=== PATIENT | female | born 1960 | race Caucasian/White ===

== ENCOUNTER 2016-12-28 19:38 | Emergency (ER) | payer OTHER ==
[~2016-12-28] VITALS: Ht 154.9 cm; Wt 59.0 kg
[~2016-12-28 19:38] MED LIST: INSU100V SC; INSU100V8 SQ
[2016-12-28] MEDS ORDERED: FLUO10CA7 PO (20:14)
[2016-12-28] MEDS ORDERED: GABA-827 PO (20:15)
[2016-12-28] MEDS ORDERED: LOSA25TA5 PO (20:15)
[2016-12-28] MEDS ORDERED: SODIUM CHLORIDE 0.9% 1,000ML IVBOLUS ONE (20:30)
[2016-12-28] MEDS ORDERED: ONDANSETRON 2MG/ML, 2ML IVPush ONE (20:30)
[2016-12-28] MEDS ORDERED: KETOROLAC 30 MG/1 ML IVPush ONE (20:30)
[2016-12-28] MEDS ORDERED: KETOROLAC 30 MG/1 ML ONE (20:44)
[2016-12-28] MEDS ORDERED: ONDANSETRON 2MG/ML, 2ML ONE (20:44)
[2016-12-28 20:52] LABS: HEMATOCRIT 38.4 % (34.6-47.8); HEMOGLOBIN 12.7 g/dL (11.7-16.4); WHITE BLOOD COUNT 6.4 x10^3/uL (3.4-10)
[2016-12-28 21:05] LABS: ASPARTATE AMINO TRANSFERASE 33 U/L (15-37); BLOOD UREA NITROGEN 13 mg/dL (7-18)
[2016-12-28 21:14] LABS: IS PT STATUS REG ER OR PRE ER? YES
[2016-12-28] MEDS ORDERED: DEXTROSE 50%, 50ML SYRINGE IVPush ONE (21:30)
[2016-12-28] MEDS ORDERED: DEXTROSE 50%, 50ML SYRINGE ONE (21:32)
[2016-12-28] MEDS ORDERED: MAALOX/HYOSCYAMINE/LIDOCAINE 45 ML BTL ONE (21:49)
[2016-12-28] MEDS ORDERED: MAALOX/HYOSCYAMINE/LIDOCAINE 45 ML BTL PO ONE (22:00)
[2016-12-28 22:32] VITALS: BP 152/68
== END 2016-12-28 22:46 | disposition home or self-care (01) ==
LOC: ED 21:00
DX: R10.11 Right upper quadrant pain (principal); R10.13 Epigastric pain; E11.9 Type 2 diabetes mellitus without complications; F10.20 Alcohol dependence, uncomplicated; Z87.891 Personal history of nicotine dependence
CPT/HCPCS: 36415; 80053; 81001; 82962; 83690; 84484; 85025; 87086; 93005; 96361; 96374; 96375; 99285; J1885; J2405; J7030

== ENCOUNTER → 2017-05-01 | Outpatient (CLI) | payer OTHER ==
[~2017-05-01] MED LIST changes: +FLUO10CA7 PO; +GABA-827 PO; +LOSA25TA5 PO; +MULT-717 PO
[2017-05-01 15:19] LABS: BASOPHILS # (AUTO) 0.04 x10^3/uL (0-0.1); BASOPHILS % (AUTO) 1 % (0-1); EOSINOPHILS # (AUTO) 0.06 x10^3/uL (0-0.4); EOSINOPHILS % (AUTO) 1 % (1-7); LYMPHOCYTES # (AUTO) 1.15 x10^3/uL (1-3.4); LYMPHOCYTES % (AUTO) 20 % (22-44); MD NO; MEAN CORPUSCULAR HGB CONC 34.1 g/dL (32.4-35.8); MEAN CORPUSCULAR VOLUME 102.7 fL (80-100); MEAN PLATELET VOLUME 7.4 fL (7.4-10.4); MONOCYTES # (AUTO) 0.42 x10^3/uL (0.2-0.8); MONOCYTES % (AUTO) 7 % (2-9); NEUTROPHILS # (AUTO) 4.11 x10^3/uL (1.8-6.8); NEUTROPHILS % (AUTO) 71 % (42-75); PLATELET COUNT 345 x10^3/uL (130-400); RED BLOOD COUNT 3.67 x10^6/uL (3.82-5.3); RED CELL DISTRIBUTION WIDTH 14.4 % (9.6-15.2)
[2017-05-01 15:26] LABS: ALANINE AMINOTRANSFERASE 27 U/L (12-78); ALBUMIN 4.1 g/dL (3.4-5.0); ANION GAP 8 mmol/L (5-15); CALCIUM 9.2 mg/dL (8.5-10.1); CHLORIDE 98 mmol/L (98-107); CREATININE 1.19 mg/dL (0.55-1.02)
[2017-05-01 15:28] LABS: ALKALINE PHOSPHATASE 90 U/L (45-117); BILIRUBIN,TOTAL 1.4 mg/dL (0.2-1.0); TOTAL PROTEIN 7.6 g/dL (6.4-8.2)
[2017-05-01 15:38] LABS: INTERNATIONAL NORMALIZED RATIO 1.03 (0.93-1.1); PROTHROMBIN TIME 10.6 Seconds (9.6-11.5)
[2017-05-01 16:02] LABS: HEMOGLOBIN A1C 6.6 % (4.2-6.3)
== END ==
LOC: STAR 14:10
PROVIDERS: ATTEND Orthopaedic Surgery
DX: Z47.1 Aftercare following joint replacement surgery (principal); Z96.651 Presence of right artificial knee joint; E11.9 Type 2 diabetes mellitus without complications; Z79.899 Other long term (current) drug therapy
CPT/HCPCS: 36415; 80053; 83036; 85025; 85610; 85730; 87081; 87806; 93005; G0475

== ENCOUNTER 2017-09-14 17:40 | Emergency (ER) | payer OTHER ==
[~2017-09-14] VITALS: Ht 154.9 cm; Wt 53.0 kg
[~2017-09-14 17:40] MED LIST changes: +ASPI-621 PO; +CELE200C PO; +DIAZ5TAB PO; +DOCU-131 PO; +ONDA4TAB10 PO; +OXYC5CAP2 PO; +TRAM50TA2 PO
[2017-09-14] MEDS ORDERED: SODIUM CHLORIDE 0.9% 1,000 ML IV ONE (18:01)
[2017-09-14] MEDS ORDERED: HYDROmorphone 2 MG/ML, 1ML ONE (18:17)
[2017-09-14] MEDS ORDERED: ONDANSETRON ODT 4 MG ONE (18:18)
[2017-09-14] MEDS ORDERED: HYDROmorphone 1 MG/ML, 1ML IVPush PRN (18:30)
[2017-09-14] MEDS ORDERED: SODIUM CHLORIDE 0.9% 1,000ML IVBOLUS ONE (18:30)
[2017-09-14] MEDS ORDERED: SODIUM CHLORIDE FLUSH 10ML SYR IVF ONE (18:30)
[2017-09-14] MEDS ORDERED: ONDANSETRON ODT 4 MG PO ONE (18:30)
[2017-09-14 18:47] LABS: BASOPHILS # (AUTO) 0.09 x10^3/uL (0-0.1); BASOPHILS % (AUTO) 1 % (0-1); EOSINOPHILS # (AUTO) 0.04 x10^3/uL (0-0.4); EOSINOPHILS % (AUTO) 1 % (1-7); LYMPHOCYTES # (AUTO) 1.55 x10^3/uL (1-3.4); LYMPHOCYTES % (AUTO) 23 % (22-44); MD NO; MEAN CORPUSCULAR HGB CONC 34.2 g/dL (32.4-35.8); MEAN CORPUSCULAR VOLUME 96.3 fL (80-100); MEAN PLATELET VOLUME 7.5 fL (7.4-10.4); MONOCYTES # (AUTO) 0.26 x10^3/uL (0.2-0.8); MONOCYTES % (AUTO) 4 % (2-9); NEUTROPHILS # (AUTO) 4.73 x10^3/uL (1.8-6.8); NEUTROPHILS % (AUTO) 71 % (42-75); PLATELET COUNT 437 x10^3/uL (130-400); RED BLOOD COUNT 4.04 x10^6/uL (3.82-5.3); RED CELL DISTRIBUTION WIDTH 14.1 % (9.6-15.2)
[2017-09-14 18:51] LABS: PROTHROMBIN TIME 10.4 Seconds (9.6-11.5)
[2017-09-14 18:55] LABS: ALANINE AMINOTRANSFERASE 35 U/L (12-78); ALBUMIN 3.7 g/dL (3.4-5.0); ANION GAP 18 mmol/L (5-15); CALCIUM 8.6 mg/dL (8.5-10.1); CHLORIDE 99 mmol/L (98-107); CREATININE 1.01 mg/dL (0.55-1.02)
[2017-09-14 19:04] LABS: ALKALINE PHOSPHATASE 114 U/L (45-117); BILIRUBIN,TOTAL 1.4 mg/dL (0.2-1.0); TOTAL PROTEIN 7.1 g/dL (6.4-8.2)
[2017-09-14] MEDS ORDERED: ONDANSETRON 2MG/ML, 2ML ONE (19:17)
[2017-09-14] MEDS ORDERED: ONDANSETRON 2MG/ML, 2ML IVPush ONE (19:30)
[2017-09-14 19:33] LABS: CULTURE INDICATED? YES; MICROSCOPIC INDICATED
[2017-09-14] MEDS ORDERED: OMNIPAQUE 350 MG/ML, 100ML BOTTLE ONE (22:14)
[2017-09-14] MEDS ORDERED: PROMETHAZINE 25 MG/ML, 1ML ONE (22:27)
[2017-09-14] MEDS ORDERED: PROMETHAZINE 25 MG/ML, 1ML IM ONE (22:30)
[2017-09-14 22:32] VITALS: BP 115/54
== END 2017-09-14 22:43 | disposition home or self-care (01) ==
LOC: ED 20:04
DX: K29.20 Alcoholic gastritis without bleeding (principal); F10.10 Alcohol abuse, uncomplicated; N30.00 Acute cystitis without hematuria; Z90.49 Acquired absence of other specified parts of digestive tract
CPT/HCPCS: 36415; 71275; 74177; 80053; 80307; 81001; 83690; 85025; 85610; 85730; 87086; 93005; 96361; 96372; 96374; 96375; 99285; J1170; J2405; J2550; J7030; Q0162; Q9967

== ENCOUNTER 2017-12-08 22:42 | Emergency (ER) | payer OTHER ==
[~2017-12-08] VITALS: Ht 154.9 cm; Wt 60.5 kg
[~2017-12-08 22:42] MED LIST changes: -LOSA25TA5 PO; +LOSA25TA6 PO
[2017-12-08] MEDS ORDERED: DEXTROSE 50%, 50ML SYRINGE ONE (22:46)
[2017-12-08] MEDS ORDERED: SODIUM CHLORIDE 0.9% 1,000ML IVBOLUS ONE (23:30)
[2017-12-08] MEDS ORDERED: SODIUM CHLORIDE FLUSH 10ML SYR IVF ONE (23:30)
[2017-12-08] MEDS ORDERED: LORazepam 2 MG/ML, 1ML IVPush ONE (23:30)
[2017-12-08 23:33] LABS: BASOPHILS # (AUTO) 0.03 x10^3/uL (0-0.1); BASOPHILS % (AUTO) 0 % (0-1); EOSINOPHILS % (AUTO) 3 % (1-7); LYMPHOCYTES # (AUTO) 2.31 x10^3/uL (1-3.4); LYMPHOCYTES % (AUTO) 25 % (22-44); MD NO; MEAN CORPUSCULAR HEMOGLOBIN 33.3 pg (27.0-34.8); MEAN CORPUSCULAR HGB CONC 34.6 g/dL (32.4-35.8); MEAN CORPUSCULAR VOLUME 96.4 fL (80-100); MEAN PLATELET VOLUME 7.9 fL (7.4-10.4); MONOCYTES # (AUTO) 0.68 x10^3/uL (0.2-0.8); MONOCYTES % (AUTO) 7 % (2-9); NEUTROPHILS % (AUTO) 65 % (42-75); PLATELET COUNT 390 x10^3/uL (130-400); RED BLOOD COUNT 4.29 x10^6/uL (3.82-5.3); RED CELL DISTRIBUTION WIDTH 13.1 % (9.6-15.2)
[2017-12-08 23:41] LABS: ALBUMIN 4.5 g/dL (3.4-5.0); ANION GAP 12 mmol/L (5-15); CALCIUM 9.8 mg/dL (8.5-10.1); CHLORIDE 101 mmol/L (98-107); CREATININE 1.09 mg/dL (0.55-1.02)
[2017-12-09 00:19] VITALS: BP 128/61
[2017-12-09 00:24] LABS: MICROSCOPIC NOT IND
[2017-12-09 00:27] LABS: CULTURE INDICATED? NO
== END 2017-12-09 01:30 | disposition home or self-care (01) ==
LOC: ED 12-09 00:22
DX: E10.641 Type 1 diabetes mellitus with hypoglycemia with coma (principal); R41.82 Altered mental status, unspecified
CPT/HCPCS: 36415; 80048; 81003; 82040; 82962; 85025; 96360; 99291; J7030

== ENCOUNTER 2018-08-08 20:23 | Emergency (ER) | payer OTHER ==
[~2018-08-08] VITALS: Ht 162.6 cm; Wt 65.0 kg
[~2018-08-08 20:23] MED LIST changes: -ASPI-621 PO; +ASPI81TA45 PO; +FLUO20CA8 PO; +INSU300I SQ; +LOSA25TA25 PO; -LOSA25TA6 PO
--- NOTE | 2018-08-08 20:34 | NUR ---
Bib [facility] c/o "acting weird" per . 26 fsbg observed and given 250 ml d10. 2nd fsbg of 288 from [facility]. 123 fsbg in ed. Pt slurring words in ed, but admits to drinking today. Neuro otherwise intact. Given juice to drink. A+ox4. Unsure of how much insulin she took today. All monitoring applied. Vss. Call light within reach.
--- NOTE | 2018-08-08 20:48 | NUR ---
Given sandwich and chips per md order.
--- NOTE | 2018-08-08 21:21 | NUR ---
Pt appearing more alert and slurring has mostly resolved. Vss. Nadn. Ate half of sandwich and chips. Fsbg of 165 observed.
--- NOTE | 2018-08-08 22:24 | NUR ---
No immediate needs from pt. Multiple stably increasing fsbg documented. aware.
[2018-08-08 22:25] VITALS: BP 133/88
== END 2018-08-08 23:24 | disposition home or self-care (01) ==
LOC: ED 21:01
DX: E10.641 Type 1 diabetes mellitus with hypoglycemia with coma (principal); Z79.4 Long term (current) use of insulin; Z87.891 Personal history of nicotine dependence
CPT/HCPCS: 82962; 93005; 99283

== ENCOUNTER 2019-04-27 18:07 | Emergency (ER) | payer MEDICAID ==
[~2019-04-27] VITALS: Ht 154.9 cm; Wt 60.0 kg
[~2019-04-27 18:07] MED LIST changes: +FLUO10CA14 PO; -FLUO10CA7 PO; +FLUO20CA23 PO; -FLUO20CA8 PO
[2019-04-27 18:46] LABS: BASOPHILS # (AUTO) 0.03 x10^3/uL (0-0.1); BASOPHILS % (AUTO) 0 % (0-1); EOSINOPHILS # (AUTO) 0.17 x10^3/uL (0-0.4); EOSINOPHILS % (AUTO) 2 % (1-7); LYMPHOCYTES # (AUTO) 0.89 x10^3/uL (1-3.4); LYMPHOCYTES % (AUTO) 8 % (22-44); MD NO; MEAN CORPUSCULAR HEMOGLOBIN 33.9 pg (27.0-34.8); MEAN CORPUSCULAR HGB CONC 34.9 g/dL (32.4-35.8); MEAN CORPUSCULAR VOLUME 97.2 fL (80-100); MEAN PLATELET VOLUME 8.1 fL (7.4-10.4); MONOCYTES # (AUTO) 0.49 x10^3/uL (0.2-0.8); MONOCYTES % (AUTO) 4 % (2-9); NEUTROPHILS # (AUTO) 9.76 x10^3/uL (1.8-6.8); NEUTROPHILS % (AUTO) 86 % (42-75); PLATELET COUNT 431 x10^3/uL (130-400); RED CELL DISTRIBUTION WIDTH 14.5 % (9.6-15.2)
[2019-04-27 18:54] LABS: ALBUMIN 3.6 g/dL (3.4-5.0); ANION GAP 15 mmol/L (5-15); CHLORIDE 93 mmol/L (98-107); CREATININE 1.38 mg/dL (0.55-1.02)
--- NOTE | 2019-04-27 19:18 | NUR ---
Report from Jeanmarie ALBERTO. FSBS checked 154, pt ate small amount from tray.
--- NOTE | 2019-04-27 20:10 | NUR ---
Repeat FSBS 201.
[2019-04-27 20:42] VITALS: BP 144/67
== END 2019-04-27 20:50 | disposition home or self-care (01) ==
LOC: ED 20:10
DX: E10.641 Type 1 diabetes mellitus with hypoglycemia with coma (principal); F10.20 Alcohol dependence, uncomplicated; Y90.9 Presence of alcohol in blood, level not specified
CPT/HCPCS: 36415; 80048; 82040; 82962; 85025; 99283

== ENCOUNTER 2019-05-07 19:31 | Emergency (ER) | payer MEDICAID ==
[~2019-05-07] VITALS: Ht 154.9 cm; Wt 62.1 kg
--- NOTE | 2019-05-07 19:47 | NUR ---
pt provided a turkey sandwich with water, pt ate half of it.
[2019-05-07] MEDS ORDERED: THIAMINE 100MG TABLET ONE (19:55)
[2019-05-07 19:59] LABS: BASOPHILS # (AUTO) 0.02 x10^3/uL (0-0.1); BASOPHILS % (AUTO) 1 % (0-1); EOSINOPHILS # (AUTO) 0.73 x10^3/uL (0-0.4); EOSINOPHILS % (AUTO) 15 % (1-7); LYMPHOCYTES # (AUTO) 1.46 x10^3/uL (1-3.4); LYMPHOCYTES % (AUTO) 30 % (22-44); MD NO; MEAN CORPUSCULAR HEMOGLOBIN 33.8 pg (27.0-34.8); MEAN CORPUSCULAR HGB CONC 34.2 g/dL (32.4-35.8); MEAN CORPUSCULAR VOLUME 98.9 fL (80-100); MEAN PLATELET VOLUME 7.4 fL (7.4-10.4); MONOCYTES # (AUTO) 0.42 x10^3/uL (0.2-0.8); MONOCYTES % (AUTO) 9 % (2-9); NEUTROPHILS # (AUTO) 2.27 x10^3/uL (1.8-6.8); NEUTROPHILS % (AUTO) 46 % (42-75); PLATELET COUNT 357 x10^3/uL (130-400); RED CELL DISTRIBUTION WIDTH 15.4 % (9.6-15.2)
[2019-05-07] MEDS ORDERED: THIAMINE 100MG TABLET PO ONE (20:00)
[2019-05-07 20:34] LABS: ALANINE AMINOTRANSFERASE 27 U/L (12-78); ALBUMIN 3.2 g/dL (3.4-5.0); ANION GAP 9 mmol/L (5-15); CALCIUM 8.4 mg/dL (8.5-10.1); CHLORIDE 107 mmol/L (98-107); CREATININE 0.88 mg/dL (0.55-1.02)
[2019-05-07 20:36] LABS: ALKALINE PHOSPHATASE 121 U/L (45-117); BILIRUBIN,TOTAL 0.5 mg/dL (0.2-1.0); TOTAL PROTEIN 6.6 g/dL (6.4-8.2)
[2019-05-07 20:50] VITALS: BP 116/52
--- NOTE | 2019-05-07 21:39 | NUR ---
RECEIVED REPORT FROM SUZANNE ALBERTO. ASSUMING CARE AT THIS TIME.
== END 2019-05-07 22:10 | disposition home or self-care (01) ==
LOC: ED 21:30
DX: E11.649 Type 2 diabetes mellitus with hypoglycemia without coma (principal); G31.2 Degeneration of nervous system due to alcohol; R41.82 Altered mental status, unspecified
CPT/HCPCS: 36415; 80053; 80307; 82962; 83690; 85025; 93005; 99284

== ENCOUNTER 2019-08-31 20:29 | Emergency (ER) | payer MEDICAID ==
[~2019-08-31] VITALS: Ht 157.5 cm; Wt 60.0 kg
--- NOTE | 2019-08-31 20:39 | NUR ---
BIB [facility] FOR ANXIETY. DRANK A FIFTH THIS AFTERNOON. QUITE ANXIOUS. HX OF DM, FSBG 180
--- NOTE | 2019-08-31 20:48 | NUR ---
PT MONIK CALLED. PHONE NUMBER [phone]
[2019-08-31 21:16] VITALS: BP 106/81
--- NOTE | 2019-08-31 21:31 | NUR ---
WITH REASSESSMENT PATIENT NOW NON ANXIOUS, AMBULATED TO RESTROOM WITHOUT DIFFICULTY PROVIDER MADE AWARE
== END 2019-08-31 22:14 | disposition home or self-care (01) ==
LOC: ED 22:06
DX: F10.120 Alcohol abuse with intoxication, uncomplicated (principal); E11.9 Type 2 diabetes mellitus without complications; Z87.891 Personal history of nicotine dependence; Y90.0 Blood alcohol level of less than 20 mg/100 ml
CPT/HCPCS: 99283

== ENCOUNTER 2019-10-30 09:29 | Emergency (ER) | payer MEDICAID ==
[~2019-10-30] VITALS: Ht 154.9 cm; Wt 62.0 kg
--- NOTE | 2019-10-30 09:53 | NUR ---
PT EATING FROSTED FLAKES AND DRINKING OJ. BLOOD GLUCOSE 138. AWAITING MD MCMANUS. REPORT TO AUGUSTINE ALBERTO
--- NOTE | 2019-10-30 09:56 | NUR ---
PT REPORT FROM DOLLY BIRCH. PT CARE TO BE ASSUMED. PT CURRENTLY RESTING ON Sensorion, WATCHING TV. INITIAL FOOD CONSUMED. AWAITING BREAKFAST TRAY AND ERP ASSESSMENT.
--- NOTE | 2019-10-30 10:08 | NUR ---
AMBULATORY TO & FROM [facility] W/OUT INCIDENT; GAIT STEADY. VOIDED SPECIMEN PROVIDED; CLEAR YELLOW
--- NOTE | 2019-10-30 10:10 | NUR ---
DR BEGUM BS FOR EXAM.
--- NOTE | 2019-10-30 10:47 | NUR ---
PT REFUSED BREAKFAST TRAY, EXCEPT FOR MUFFIN.
[2019-10-30 11:24] LABS: BASOPHILS # (AUTO) 0.02 x10^3/uL (0-0.1); BASOPHILS % (AUTO) 1 % (0-1); EOSINOPHILS # (AUTO) 0.24 x10^3/uL (0-0.4); EOSINOPHILS % (AUTO) 6 % (1-7); LYMPHOCYTES # (AUTO) 0.73 x10^3/uL (1-3.4); LYMPHOCYTES % (AUTO) 17 % (22-44); MD NO; MEAN CORPUSCULAR HEMOGLOBIN 33.3 pg (27.0-34.8); MEAN CORPUSCULAR HGB CONC 33.3 g/dL (32.4-35.8); MONOCYTES # (AUTO) 0.56 x10^3/uL (0.2-0.8); MONOCYTES % (AUTO) 13 % (2-9); NEUTROPHILS # (AUTO) 2.83 x10^3/uL (1.8-6.8); NEUTROPHILS % (AUTO) 65 % (42-75); PLATELET COUNT 283 x10^3/uL (130-400); RED BLOOD COUNT 3.64 x10^6/uL (3.82-5.3); RED CELL DISTRIBUTION WIDTH 18.3 % (9.6-15.2)
[2019-10-30 11:25] LABS: MICROSCOPIC AUTO
--- NOTE | 2019-10-30 11:26 | NUR ---
SPOUSE AT BS
[2019-10-30 11:33] LABS: ALBUMIN 3.6 g/dL (3.4-5.0); ANION GAP 6 mmol/L (5-15); CALCIUM 9.2 mg/dL (8.5-10.1); CHLORIDE 105 mmol/L (98-107); CREATININE 1.09 mg/dL (0.55-1.02)
[2019-10-30 12:11] VITALS: BP 128/60
[2019-10-30] MEDS ORDERED: INSU100I48 SQ (12:57)
[2019-10-30] MEDS ORDERED: INSU100I34 SQ (12:57)
== END 2019-10-30 13:07 | disposition home or self-care (01) ==
LOC: ED 11:42
DX: E11.649 Type 2 diabetes mellitus with hypoglycemia without coma (principal); R06.9 Unspecified abnormalities of breathing
CPT/HCPCS: 71045; 80048; 81001; 82040; 82962; 85025; 87086; 99285

== ENCOUNTER 2020-05-01 14:18 | Emergency (ER) | payer MEDICAID ==
[~2020-05-01] VITALS: Ht 154.9 cm; Wt 62.0 kg
[~2020-05-01 14:18] MED LIST changes: -FLUO10CA14 PO; +FLUO10CA15 PO; +INSU100I34 SQ; +INSU100I48 SQ
--- NOTE | 2020-05-01 14:20 | NUR ---
pt BIB [facility] from home after being found drunk in her car during a wellfare check that had been initiated by family. [employer] was on scene and called paramedics per report, pt is very agitated and crying and recently lost her 04/04/20. pt has been attempting to grab staff and is yelling and crying. pt was medicated with versed [employer] for agitation pt in no resp. distress. no obvious injury. pt repeatedly yelling "Jeanmarie" (her 's name)
--- NOTE | 2020-05-01 14:30 | NUR ---
raman present for safety as pt is very intoxcicated and agitated as well as repeatedly trying to get out of bed
--- NOTE | 2020-05-01 14:49 | NUR ---
Andra VILLASENOR at bedside for eval
[2020-05-01 15:11] LABS: BASOPHILS % (AUTO) 1 % (0-1); EOSINOPHILS % (AUTO) 2 % (1-7); LYMPHOCYTES % (AUTO) 20 % (22-44); MEAN CORPUSCULAR HEMOGLOBIN 34.4 pg (27.0-34.8); MEAN CORPUSCULAR HGB CONC 34.8 g/dL (32.4-35.8); MEAN PLATELET VOLUME 8.5 fL (7.4-10.4); MONOCYTES % (AUTO) 8 % (2-9); NEUTROPHILS % (AUTO) 70 % (42-75); PLATELET COUNT 310 x10^3/uL (130-400); RED BLOOD COUNT 3.96 x10^6/uL (3.82-5.3); RED CELL DISTRIBUTION WIDTH 15.4 % (9.6-15.2)
[2020-05-01 15:13] LABS: MD NO
[2020-05-01 15:17] LABS: ALANINE AMINOTRANSFERASE 20 U/L (12-78); ALBUMIN 3.7 g/dL (3.4-5.0); ANION GAP 13 mmol/L (5-15); CALCIUM 9.3 mg/dL (8.5-10.1); CHLORIDE 105 mmol/L (98-107); CREATININE 1.09 mg/dL (0.55-1.02)
--- NOTE | 2020-05-01 15:17 | NUR ---
pt was calmer, now epeatedly yelling "Jeanmarie" sitter at bedside for safety
[2020-05-01 15:20] LABS: ALKALINE PHOSPHATASE 105 U/L (45-117); BILIRUBIN,TOTAL 0.8 mg/dL (0.2-1.0); TOTAL PROTEIN 7.4 g/dL (6.4-8.2)
[2020-05-01 15:21] LABS: SALICYLATE LEVEL < 1.7 mg/dL (2.8-20.0)
--- NOTE | 2020-05-01 16:00 | NUR ---
pt continues to yell intermittently. pt has removed her IV. cath intact. dressing applied. pt skin cleaned and fresh gown placed on pt no resp distress. pt tearful sitter remains at bedside for safety
--- NOTE | 2020-05-01 17:00 | NUR ---
pt [id number] at bedside. pt is now having more calm periods and is more cooperative pt remains tearful. pt [id number] states that pt has been binge drinking heavily since the of her last month, and that she is fearful that pt may be trying to end her own life sitter present for safety
--- NOTE | 2020-05-01 17:01 | NUR ---
Jackelin ([id number]) [phone] Huma (mother) [phone]
--- NOTE | 2020-05-01 17:55 | NUR ---
pt has been assisted to BR to attempt urien sample, but pt missed collection hat pt ambulated back to bed pt sleepy and cooperative sitter present for safety
--- NOTE | 2020-05-01 18:20 | NUR ---
pt resting with family member at bedside sitter present for safety
--- NOTE | 2020-05-01 18:37 | NUR ---
awaiting meal tray pt lights dimmed per request. PO water and snack given sitter present for safety. pt has been updated on POC
--- NOTE | 2020-05-01 18:55 | NUR ---
meal tray delivered. pt sitting up eating in no apparen distress sitter present for safety report to Mary Jane ALBERTO
--- NOTE | 2020-05-01 19:02 | NUR ---
REPORT RECIEVED FROM DOLLY WILSON. PT GIVEN MEAL TRAY AND IS EATING. PLAN IS PSYCH EVAL WHEN SOBER. IN LINE OF SIGHT OF SITTER AT THIS TIME
[2020-05-01 19:43] LABS: AMPHETAMINE SCREEN, URINE Negative (Negative); BARBITURATE SCREEN, URINE Negative (Negative); BENZODIAZEPINE SCREEN, URINE Positive (Negative); CANNABINOID SCREEN, URINE Negative (Negative); COCAINE SCREEN, URINE Negative (Negative); METHADONE SCREEN, URINE Negative (Negative); OPIATE SCREEN, URINE Negative (Negative)
--- NOTE | 2020-05-01 22:19 | NUR ---
pt ambulated steady to restroom, no other needs at this time
--- NOTE | 2020-05-02 01:37 | NUR ---
telepsych set up at bedside, awaiting eval.
[2020-05-02] MEDS ORDERED: INSULIN SINGLE DOSE, ER ONE ×2 (02:51→05:04)
[2020-05-02] MEDS ORDERED: INSULIN REGULAR 100 UNITS/ML, 3ML VIAL SQ-INSULIN SCH ×3 (03:00→11:00)
--- NOTE | 2020-05-02 03:47 | NUR ---
PT WAS TELEPSYCHED, THEY SPOKE WITH DR. RUSSELL AND PER DR. RUSSELL PT TO STAY OVERNIGHT UNTIL PSYCH CAN TALK WITH FAMILY ABOUT PT. PT UNDERSTANDING AND AGREEABLE, PT ALSO A TYPE 1 DIABETIC AND BS WAS 442. PT WAS MEDICATED PER EMAR, WILL REASSESS BS.
--- NOTE | 2020-05-02 04:31 | NUR ---
pt ambulated to restroom and back, no needs at this time. in line of sight of sitter
[2020-05-02] MEDS ORDERED: INSULIN REGULAR 100 UNITS/ML, 3ML VIAL SQ-INSULIN ONE (05:30)
--- NOTE | 2020-05-02 05:40 | NUR ---
call recieved from jackelin (sister) and recieved number for mother as well. sister agreeable to recieve call and talk about poc with psych doc. psych doc being contacted at this time. Jackelin (sister): [phone] Huma (mother): [phone]
--- NOTE | 2020-05-02 06:56 | NUR ---
Bedside report from DOLLY Hinton. Pt awake and alert. All needs met at this time.
--- NOTE | 2020-05-02 07:04 | NUR ---
speaking to psych doc (Dr. Adan). pt is to be placed on hold. per Dr adan, if inpatient rehab faciltiy becomes availible hold will be dropped and she can volentarily choose to go there. pt is too much of a danger to herself to go home or leave the hospital. pt to be placed in inpatient psych if rehab unavaible. hold placed now. will update
[2020-05-02 09:39] VITALS: BP 130/54
== END 2020-05-02 12:07 ==
LOC: ED 22:38
DX: F10.220 Alcohol dependence with intoxication, uncomplicated (principal); Z20.822 Contact with and (suspected) exposure to COVID-19; F41.1 Generalized anxiety disorder; E11.9 Type 2 diabetes mellitus without complications; Y90.0 Blood alcohol level of less than 20 mg/100 ml
CPT/HCPCS: 36415; 80053; 80299; 80307; 80320; 80329; 82962; 85025; 87426; 99285; J1815; G0480

== ENCOUNTER 2020-05-02 10:48 | Inpatient (IN) | payer MEDICAID ==
[~2020-05-02] VITALS: Ht 154.9 cm; Wt 57.8 kg
[2020-05-02] MEDS ORDERED: ONDANSETRON ODT 4 MG PO PRN (11:30)
[2020-05-02] MEDS ORDERED: POLYETHYLENE GLYCOL 17 GM PACKET PO PRN (11:30)
[2020-05-02] MEDS ORDERED: LORazepam 1MG TABLET PO PRN (11:30)
[2020-05-02] MEDS ORDERED: ACETAMINOPHEN 325 MG TABLET PO PRN (11:30)
[2020-05-02] MEDS ORDERED: DOCUSATE 100 MG CAPSULE PO PRN (11:30)
[2020-05-02] MEDS ORDERED: BISACODYL 10 MG SUPP PR PRN (11:30)
[2020-05-02 12:30] VITALS: BP 104/67
[2020-05-02] MEDS: LORazepam 1MG TABLET PO SCH ×2 (16:00→20:56)
[2020-05-02] MEDS: INSULIN LISPRO 100 UNITS/ML, PEN SQ-INSULIN SCH ×2 (17:25→20:56)
[2020-05-02 19:23] VITALS: BP 101/68
[2020-05-02] MEDS: ESCITALOPRAM 10MG TABLET PO SCH (20:55)
[2020-05-02] MEDS: ACAMPROSATE 333 MG TABLET.DR PO SCH (20:55)
[2020-05-02] MEDS: INSULIN GLARGINE 100 UNITS/ML, PEN SQ-INSULIN SCH (20:56)
[2020-05-03] MEDS: LORazepam 1MG TABLET PO SCH ×2 (03:24→09:00)
[2020-05-03 06:40] LABS: FREE T4 (FREE THYROXINE) 0.99 ng/dL (0.76-1.46); LDL/HDL RATIO 2.4 (0.5-3.0)
[2020-05-03] MEDS: INSULIN LISPRO 100 UNITS/ML, PEN SQ-INSULIN SCH ×4 (07:00→20:16)
[2020-05-03 07:38] VITALS: BP 95/54
[2020-05-03] MEDS: LOSARTAN 25MG TABLET PO SCH (09:00)
[2020-05-03] MEDS: FOLIC ACID 1 MG TABLET PO SCH (10:08)
[2020-05-03] MEDS: MULTIVITAMINS/MINERALS TABLET PO SCH (10:09)
[2020-05-03] MEDS: ACAMPROSATE 333 MG TABLET.DR PO SCH ×3 (10:09→20:12)
[2020-05-03] MEDS: ESCITALOPRAM 10MG TABLET PO SCH (10:09)
[2020-05-03] MEDS: THIAMINE 100MG TABLET PO SCH (10:10)
[2020-05-03 17:32] LABS: MICROSCOPIC AUTO
[2020-05-03 19:40] VITALS: BP 124/65
[2020-05-03] MEDS: INSULIN GLARGINE 100 UNITS/ML, PEN SQ-INSULIN SCH (20:14)
[2020-05-03] MEDS: MELATONIN 3 MG TABLET PO SCH (20:51)
[2020-05-04] MEDS: INSULIN LISPRO 100 UNITS/ML, PEN SQ-INSULIN SCH ×4 (06:35→20:10)
[2020-05-04 07:58] VITALS: BP 122/74
[2020-05-04] MEDS: FOLIC ACID 1 MG TABLET PO SCH (09:43)
[2020-05-04] MEDS: THIAMINE 100MG TABLET PO SCH (09:44)
[2020-05-04] MEDS: LOSARTAN 25MG TABLET PO SCH (09:44)
[2020-05-04] MEDS: ACAMPROSATE 333 MG TABLET.DR PO SCH ×3 (09:44→20:09)
[2020-05-04] MEDS: ESCITALOPRAM 10MG TABLET PO SCH (09:44)
[2020-05-04] MEDS: MULTIVITAMINS/MINERALS TABLET PO SCH (09:45)
[2020-05-04 19:32] VITALS: BP 105/69
[2020-05-04] MEDS: MELATONIN 3 MG TABLET PO SCH (20:09)
[2020-05-04] MEDS: INSULIN GLARGINE 100 UNITS/ML, PEN SQ-INSULIN SCH (20:11)
[2020-05-05 08:00] VITALS: BP 109/72
[2020-05-05] MEDS: ACAMPROSATE 333 MG TABLET.DR PO SCH ×3 (08:15→19:52)
[2020-05-05] MEDS: FOLIC ACID 1 MG TABLET PO SCH (08:16)
[2020-05-05] MEDS: THIAMINE 100MG TABLET PO SCH (08:16)
[2020-05-05] MEDS: MULTIVITAMINS/MINERALS TABLET PO SCH (08:16)
[2020-05-05] MEDS: ESCITALOPRAM 10MG TABLET PO SCH (08:16)
[2020-05-05] MEDS: LOSARTAN 25MG TABLET PO SCH (08:16)
[2020-05-05] MEDS: INSULIN LISPRO 100 UNITS/ML, PEN SQ-INSULIN SCH ×4 (08:17→19:54)
[2020-05-05] MEDS ORDERED: FLUCONAZOLE 200 MG TABLET PO ONE (16:00)
[2020-05-05 19:12] VITALS: BP_SYST 103; BP_SYST 123; BP_DIAS 66; BP_DIAS 81
[2020-05-05] MEDS: MELATONIN 3 MG TABLET PO SCH (19:52)
[2020-05-05] MEDS: INSULIN GLARGINE 100 UNITS/ML, PEN SQ-INSULIN SCH (19:54)
[2020-05-06] MEDS: INSULIN LISPRO 100 UNITS/ML, PEN SQ-INSULIN SCH ×4 (06:21→20:04)
[2020-05-06] MEDS ORDERED: INSULIN LISPRO 100 UNITS/ML, PEN SQ-INSULIN SCH (07:00)
[2020-05-06 07:55] VITALS: BP 130/69
[2020-05-06] MEDS: MULTIVITAMINS/MINERALS TABLET PO SCH (09:22)
[2020-05-06] MEDS: THIAMINE 100MG TABLET PO SCH (09:22)
[2020-05-06] MEDS: FOLIC ACID 1 MG TABLET PO SCH (09:22)
[2020-05-06] MEDS: ESCITALOPRAM 10MG TABLET PO SCH (09:22)
[2020-05-06] MEDS: ACAMPROSATE 333 MG TABLET.DR PO SCH ×3 (09:22→20:03)
[2020-05-06] MEDS: LOSARTAN 25MG TABLET PO SCH (09:23)
[2020-05-06 19:35] VITALS: BP 112/69
[2020-05-06] MEDS: MELATONIN 3 MG TABLET PO SCH (20:03)
[2020-05-06] MEDS ORDERED: INSULIN GLARGINE 100 UNITS/ML, PEN SQ-INSULIN SCH (21:00)
[2020-05-06] MEDS ORDERED: DEXTROSE 4 GM TAB.CHEW PO PRN (23:30)
[2020-05-06] MEDS ORDERED: DEXTROSE 50%, 50ML SYRINGE IVPush PRN (23:30)
[2020-05-06] MEDS ORDERED: SODIUM CHLORIDE FLUSH 10ML SYR IVF PRN (23:30)
[2020-05-06] MEDS ORDERED: GLUCAGON 1 MG IM PRN (23:30)
[2020-05-07 07:33] VITALS: BP 110/63
[2020-05-07] MEDS: INSULIN LISPRO 100 UNITS/ML, PEN SQ-INSULIN SCH ×2 (08:51→11:55)
[2020-05-07] MEDS: LOSARTAN 25MG TABLET PO SCH (08:55)
[2020-05-07] MEDS: ACAMPROSATE 333 MG TABLET.DR PO SCH (08:55)
[2020-05-07] MEDS: THIAMINE 100MG TABLET PO SCH (08:56)
[2020-05-07] MEDS: MULTIVITAMINS/MINERALS TABLET PO SCH (08:56)
[2020-05-07] MEDS: ESCITALOPRAM 10MG TABLET PO SCH (08:56)
[2020-05-07] MEDS: FOLIC ACID 1 MG TABLET PO SCH (08:56)
[2020-05-07] MEDS ORDERED: ACAM333T7 PO (11:57)
[2020-05-07] MEDS ORDERED: FOLI1TAB32 PO (11:57)
[2020-05-07] MEDS ORDERED: MELA3TAB31 PO (11:57)
[2020-05-07] MEDS ORDERED: LOSA25TA25 PO (11:57)
[2020-05-07] MEDS ORDERED: ESCI10TA97 PO (11:57)
[2020-05-07] MEDS ORDERED: INSULIN LISPRO 100 UNITS/ML, PEN SQ-INSULIN SCH (16:00)
[2020-05-07] MEDS ORDERED: INSULIN GLARGINE 100 UNITS/ML, PEN SQ-INSULIN SCH (21:00)
== END 2020-05-07 13:31 | disposition home or self-care (01) | DRG 885 ==
LOC: 3E 12:19
PROVIDERS: ADMIT Psychiatry & Neurology Psychosomatic Medicine; ATTEND Psychiatry & Neurology Psychosomatic Medicine
DX: F32.2 Major depressive disorder, single episode, severe without psychotic features (principal); I10 Essential (primary) hypertension; F43.21 Adjustment disorder with depressed mood; G47.00 Insomnia, unspecified; E10.649 Type 1 diabetes mellitus with hypoglycemia without coma; F10.20 Alcohol dependence, uncomplicated; Z87.891 Personal history of nicotine dependence; Z90.49 Acquired absence of other specified parts of digestive tract; Z79.4 Long term (current) use of insulin; Z63.4 Disappearance and death of family member
CPT/HCPCS: 36415; 71045; 80061; 81001; 82140; 82962; 83036; 84439; 84443; 87086; 93005; J1815

== ENCOUNTER 2020-10-12 21:46 | Observation (INO) | payer MEDICAID ==
[~2020-10-12] VITALS: Ht 167.6 cm; Wt 75.0 kg
[~2020-10-12 21:46] MED LIST changes: +ACAM333T7 PO; +ESCI10TA97 PO; +FOLI1TAB32 PO; +MELA3TAB31 PO
--- NOTE | 2020-10-12 21:52 | NUR ---
INITIAL PT CONTACT. PT BIBA C/O ETOH INTOXICATION. PER EMS, PT HAS SIGNIFICANT INCREASE IN ETOH CONSUMPTION RECENTLY DUE TO FAMILY LOSS. PT TEARFUL AND ONLY FOLLOWING SOME COMMANDS ON ARRIVAL TO ED. NO RECENT TRAUMA OR OTHER COMPLAINTS AT THIS TIME. HX OF DIABETES, SUGAR 269 WITH EMS. PT PLACED ON CONTINUOUS MONITORING. CALL LIGHT AND BELONGINGS WITHIN REACH. AWAITING ERP.
[2020-10-12] MEDS ORDERED: ZIPRASIDONE 20 MG INJ IM ONE ×2 (22:09→22:30)
--- NOTE | 2020-10-12 22:30 | NUR ---
PT ROOM AIR O2 SAT WHILE SLEEPING NOTED TO BE 82-86%, PLACED ON 2L O2 VIA NASAL CANNULA, IMPROVED TO 98%. NO ADDITIONAL NEEDS AT THIS TIME. CALL LIGHT AND BELONGINGS WITHIN REACH.
--- NOTE | 2020-10-12 22:48 | NUR ---
MOTHER: GAY [phone]
[2020-10-12 22:54] LABS: ALANINE AMINOTRANSFERASE 31 U/L (12-78); ALBUMIN 3.5 g/dL (3.4-5.0); ANION GAP 12 mmol/L (5-15); BASOPHILS % (AUTO) 1 % (0-1); CALCIUM 8.6 mg/dL (8.5-10.1); CHLORIDE 104 mmol/L (98-107); CREATININE 1.12 mg/dL (0.55-1.02); EOSINOPHILS % (AUTO) 3 % (1-7); LYMPHOCYTES % (AUTO) 40 % (22-44); MEAN CORPUSCULAR HEMOGLOBIN 32.4 pg (27.0-34.8); MEAN CORPUSCULAR HGB CONC 34.2 g/dL (32.4-35.8); MEAN PLATELET VOLUME 7.5 fL (7.4-10.4); MONOCYTES % (AUTO) 6 % (2-9); NEUTROPHILS % (AUTO) 51 % (42-75); PLATELET COUNT 312 x10^3/uL (130-400); RED BLOOD COUNT 4.04 x10^6/uL (3.82-5.3); RED CELL DISTRIBUTION WIDTH 14.8 % (9.6-15.2)
[2020-10-12 22:59] LABS: ALKALINE PHOSPHATASE 109 U/L (45-117); BILIRUBIN,TOTAL 0.6 mg/dL (0.2-1.0); TOTAL PROTEIN 7.1 g/dL (6.4-8.2)
[2020-10-13] MEDS ORDERED: ZIPRASIDONE 20 MG INJ IM ONE ×2 (00:30→01:00)
--- NOTE | 2020-10-13 01:30 | NUR ---
RELIEF RN: PT SLEEPING. RR EVEN NON LABORED. WILL CTM.
--- NOTE | 2020-10-13 02:30 | NUR ---
PT SITTING UPRIGHT ON LÁZARO WHEELER, VSS. PT RESTING COMFORTABLY WITH EYES CLOSED. NO NEEDS AT THIS TIME. WILL CONTINUE TO MONITOR CLOSELY.
--- NOTE | 2020-10-13 06:06 | NUR ---
PT AMBULATORY WITH STEADY GAIT WITH THIS RN TO BATHROOM. RETURNED TO ROOM. NO ADDITIONAL NEEDS AT THIS TIME. CALL LIGHT AND BELONGINGS WITHIN REACH Addendum: 10/13/20 at 0616 by JACK PT AMBULATORY WITH SEMI-STEADY GAIT WITH THIS RN TO BATHROOM, STANDBY ASSISTANCE NEEDED. RETURNED TO ROOM. NO ADDITIONAL NEEDS AT THIS TIME. CALL LIGHT AND BELONGINGS WITHIN REACH
--- NOTE | 2020-10-13 06:52 | NUR ---
REPORT TO LEANDRO ALBERTO
--- NOTE | 2020-10-13 07:16 | NUR ---
REPORT RECEIVED FROM [place] RN, PT RESTING IN BED, A&OX4, RESPS EVEN AND UNLABORED, NYDIA, LÁZARO. PT TO BE DISCHARGE WHEN SAFE TO DO SO.
--- NOTE | 2020-10-13 09:19 | NUR ---
PT ABLE TO WALK IN A STRAIGHT LINE WITH STEADY GAIT. PT O2 SAT 95% ON RA. PT A&OX4, RESPS EVEN AND UNLABORED, VSS, NADN.
[2020-10-13 09:22] VITALS: BP 114/61
--- NOTE | 2020-10-13 09:29 | NUR ---
pt educated on discharge, follow-up, and return criteria, verbalized understanding. pt a&o, resps even and unlabored, vss, nadn. ambulatory to discharge with steady gait, pt mom called and notified pt is ready to be picked up.
== END 2020-10-13 09:32 | disposition home or self-care (01) ==
LOC: ED 22:16 → EDIP 10-13 02:20
PROVIDERS: ADMIT Student in an Organized Health Care Education/Training Program; ATTEND Student in an Organized Health Care Education/Training Program
DX: F10.221 Alcohol dependence with intoxication delirium (principal); G31.2 Degeneration of nervous system due to alcohol; E11.9 Type 2 diabetes mellitus without complications; Z72.9 Problem related to lifestyle, unspecified; Z87.891 Personal history of nicotine dependence; Z79.899 Other long term (current) drug therapy
CPT/HCPCS: 36415; 80053; 80320; 85025; 96372; 99284; G0378; J3486; G0480